=== PATIENT | male | born 1960 | race Caucasian/White ===

== ENCOUNTER 2023-04-16 08:39 | Emergency (ER) | payer MEDICAID, OTHER ==
[~2023-04-16] VITALS: Ht 175.3 cm; Wt 86.2 kg
[2023-04-16 08:47] VITALS: BP 140/90; PULSE 78; RESP 18; TEMP 97.8; O2SAT 98
[2023-04-16 10:59] LABS: HEMOGLOBIN. 15.2 g/dL (14.0-18.0); MEAN CORPUSCULAR HEMOGLOBIN 28.5 pg (28.0-32.0); MEAN CORPUSCULAR VOLUME 86.4 fL (80.0-94.0); MEAN PLATELET VOLUME 8.5 fl (7.4-10.4); PLATELET 156 x1000/uL (130-400); RED BLOOD CELL COUNT 5.33 mill/uL (4.7-6.1); RED CELL DISTRIBUTION WIDTH 14.5 % (11.6-14.6); WHITE BLOOD COUNT 21.2 x1000/uL (4.5-11.0)
[2023-04-16 11:02] LABS: DIFFERENTIAL COMMENT 1
[2023-04-16 11:09] LABS: CLARITY URINE TURBID (CLEAR); COLOR URINE RED (YELLOW); GLUCOSE URINE NEGATIVE (NEGATIVE); KETONES URINE NEGATIVE (NEGATIVE); LEUKOCYTE ESTERASE URINE 1+ (NEGATIVE); NITRITE URINE NEGATIVE (NEGATIVE); OCCULT BLOOD URINE 3+ (NEGATIVE); PH URINE 5.5 (4.5-8.0); PROTEIN URINE 2+ (NEGATIVE); SPECIFIC GRAVITY URINE 1.017 (1.005-1.030)
[2023-04-16 11:35] LABS: RBC URINE TNTC /hpf (0-2)
[2023-04-16 11:36] LABS: WBC URINE 0-2 /hpf (0-2)
[2023-04-16 11:37] LABS: BACTERIA URINE TRACE; SQUAMOUS EPITHELIAL CELL URINE FEW /lpf (RARE/1+)
[2023-04-16 12:00] LABS: ALANINE AMINOTRANSFERASE 26 IU/L (10-49); ALBUMIN 4.5 g/dL (3.2-4.8); ASPARTATE AMINOTRANSFERASE 35 IU/L (<34); BILIRUBIN TOTAL 0.9 mg/dL (0.1-1.0); CALCIUM 10.4 mg/dL (8.7-10.4); CHLORIDE 105 mEq/L (98-107); CREATININE 1.2 mg/dL (0.6-1.3); GLUCOSE 92 mg/dL (70-105); POTASSIUM 3.9 mEq/L (3.5-5.1); PROTEIN TOTAL 7.7 g/dL (6.0-8.3); SODIUM 140 mEq/L (136-145); UREA NITROGEN BLOOD 18 mg/dL (9-23)
[2023-04-16 12:13] LABS: CARBON DIOXIDE 24 mEq/L (21-32)
[2023-04-16 15:40] LABS: PLATELET ESTIMATE NORMAL
== END 2023-04-16 13:13 | disposition home or self-care (01) ==
LOC: ER 08:58
DX: R31.9 Hematuria, unspecified (principal); D72.829 Elevated white blood cell count, unspecified
CPT/HCPCS: 36415; 74176; 80053; 81003; 85025; 99284

== ENCOUNTER 2023-05-02 12:48 | Emergency (ER) | payer MEDICAID, OTHER ==
[~2023-05-02] VITALS: Ht 177.8 cm; Wt 70.0 kg
[~2023-05-02 12:48] MED LIST: AMLO10TA4 MT; FINA1TAB18 MT; LIP40 MT; SULF1TAB48 MT; TAMS-11 MT
[2023-05-02 12:50] VITALS: O2SAT 100
[2023-05-02 16:13] LABS: GLUCOSE URINE NEGATIVE (NEGATIVE); KETONES URINE NEGATIVE (NEGATIVE)
[2023-05-02 16:18] LABS: CLARITY URINE CLEAR (CLEAR); COLOR URINE YELLOW (YELLOW); PH URINE 5.5 (4.5-8.0); PROTEIN URINE 1+ (NEGATIVE); SPECIFIC GRAVITY URINE 1.018 (1.005-1.030)
[2023-05-02 16:19] LABS: LEUKOCYTE ESTERASE URINE 1+ (NEGATIVE); NITRITE URINE NEGATIVE (NEGATIVE); OCCULT BLOOD URINE 3+ (NEGATIVE)
[2023-05-02 16:26] LABS: BACTERIA URINE 2+; SQUAMOUS EPITHELIAL CELL URINE FEW /lpf (RARE/1+)
[2023-05-02 16:27] LABS: RBC URINE 15-25 /hpf (0-2)
[2023-05-02 19:20] VITALS: BP 122/62; PULSE 78; RESP 18; TEMP 98.7
== END 2023-05-02 20:04 | disposition home or self-care (01) ==
LOC: ER 13:15
DX: T83.031A Leakage of indwelling urethral catheter, initial encounter (principal); M19.90 Unspecified osteoarthritis, unspecified site; N40.0 Benign prostatic hyperplasia without lower urinary tract symptoms
CPT/HCPCS: 51702; 81003; 99283; 99284

== ENCOUNTER 2023-05-07 18:15 | Emergency (ER) | payer OTHER ==
[~2023-05-07] VITALS: Ht 185.4 cm; Wt 91.0 kg
[2023-05-07 18:22] VITALS: BP 97/44; PULSE 95; RESP 16; TEMP 97.5; O2SAT 99
[2023-05-07] MEDS ORDERED: NALO4SPR BOTHNSTRLS (19:03)
== END 2023-05-07 20:32 | disposition home or self-care (01) ==
LOC: ER 18:15
DX: F11.10 Opioid abuse, uncomplicated (principal); T40.415A Adverse effect of fentanyl or fentanyl analogs, initial encounter; X58.XXXA Exposure to other specified factors, initial encounter; F14.10 Cocaine abuse, uncomplicated
CPT/HCPCS: 99283

== ENCOUNTER 2023-05-30 08:03 | Inpatient (IN) | payer OTHER ==
[~2023-05-30] VITALS: Ht 182.9 cm; Wt 81.6 kg
[~2023-05-30 08:03] MED LIST changes: +NALO4SPR BOTHNSTRLS
[2023-05-30 08:48] LABS: ALANINE AMINOTRANSFERASE 17 IU/L (10-49); ALBUMIN 3.7 g/dL (3.2-4.8); ASPARTATE AMINOTRANSFERASE 42 IU/L (<34); BILIRUBIN TOTAL 0.5 mg/dL (0.1-1.0); CALCIUM 8.9 mg/dL (8.7-10.4); CARBON DIOXIDE 21 mEq/L (21-32); CHLORIDE 113 mEq/L (98-107); GLUCOSE 126 mg/dL (70-105); POTASSIUM 3.6 mEq/L (3.5-5.1); PROTEIN TOTAL 5.7 g/dL (6.0-8.3); SODIUM 146 mEq/L (136-145); UREA NITROGEN BLOOD 35 mg/dL (9-23)
[2023-05-30 08:54] LABS: CREATININE 2.1 mg/dL (0.6-1.3)
[2023-05-30 08:56] LABS: MEAN CORPUSCULAR HEMOGLOBIN 28.1 pg (28.0-32.0); MEAN CORPUSCULAR HGB CONC 33.8 g/dL (31.0-37.0); MEAN CORPUSCULAR VOLUME 83.1 fL (80.0-94.0); MEAN PLATELET VOLUME 7.5 fl (7.4-10.4); PLATELET 101 x1000/uL (130-400); RED BLOOD CELL COUNT 2.18 mill/uL (4.7-6.1); RED CELL DISTRIBUTION WIDTH 15.3 % (11.6-14.6); WHITE BLOOD COUNT 6.9 x1000/uL (4.5-11.0)
[2023-05-30 09:01] LABS: DIFFERENTIAL COMMENT 1
[2023-05-30 09:03] LABS: HEMATOCRIT. 18.1 % (42.0-52.0); HEMOGLOBIN. 6.1 g/dL (14.0-18.0)
[2023-05-30 09:07] LABS: INR 1.2; PROTHROMBIN TIME 12.5 sec (9.6-11.0)
[2023-05-30 09:33] LABS: NUCLEATED RED BLOOD CELLS 2 /100 WBC
[2023-05-30 09:35] LABS: ANISOCYTOSIS 1+; PLATELET ESTIMATE SLIGHTLY DECREASED
[2023-05-30 10:28] LABS: CLARITY URINE CLOUDY (CLEAR); COLOR URINE YELLOW (YELLOW); GLUCOSE URINE NEGATIVE (NEGATIVE); KETONES URINE NEGATIVE (NEGATIVE); LEUKOCYTE ESTERASE URINE 2+ (NEGATIVE); NITRITE URINE NEGATIVE (NEGATIVE); OCCULT BLOOD URINE 3+ (NEGATIVE); PH URINE 5.5 (4.5-8.0); PROTEIN URINE 1+ (NEGATIVE); SPECIFIC GRAVITY URINE 1.011 (1.005-1.030); UROBILINOGEN URINE 0.2 E.U./dL (0.2-1.0)
[2023-05-30 10:46] LABS: RBC URINE 15-25 /hpf (0-2); SQUAMOUS EPITHELIAL CELL URINE RARE /lpf (RARE/1+); WBC URINE 25-50 /hpf (0-2)
[2023-05-30 10:47] LABS: BACTERIA URINE TRACE; YEAST URINE NONE SEEN
[2023-05-30] MEDS ORDERED: CEFTRIAXONE 1GM PREMIX 50 ML IV ONE (13:45)
[2023-05-30 20:00] VITALS: BP 155/71; PULSE 97; RESP 18; TEMP 98.1
[2023-05-30] MEDS ORDERED: CLONIDINE 0.1MG TABLET PO PRN (23:00)
[2023-05-31] VITALS: BP 154/78; PULSE 102; RESP 18; TEMP 98.9
[2023-05-31 00:34] VITALS: BP 155/71; PULSE 97; RESP 18; TEMP 98.1
[2023-05-31 04:00] VITALS: BP 150/74; PULSE 99; RESP 18; TEMP 98.2
[2023-05-31 06:35] LABS: MEAN CORPUSCULAR HEMOGLOBIN 28.6 pg (28.0-32.0); MEAN CORPUSCULAR HGB CONC 33.8 g/dL (31.0-37.0); MEAN CORPUSCULAR VOLUME 84.6 fL (80.0-94.0); MEAN PLATELET VOLUME 7.4 fl (7.4-10.4); PLATELET 95 x1000/uL (130-400); RED BLOOD CELL COUNT 2.48 mill/uL (4.7-6.1); RED CELL DISTRIBUTION WIDTH 15.3 % (11.6-14.6); WHITE BLOOD COUNT 10.3 x1000/uL (4.5-11.0)
[2023-05-31 07:02] LABS: DIFFERENTIAL COMMENT 1; HEMATOCRIT. 20.9 % (42.0-52.0); HEMOGLOBIN. 7.1 g/dL (14.0-18.0)
[2023-05-31 07:14] LABS: CALCIUM 9.5 mg/dL (8.7-10.4); CARBON DIOXIDE 23 mEq/L (21-32); CHLORIDE 111 mEq/L (98-107); CREATININE 1.9 mg/dL (0.6-1.3); GLUCOSE 85 mg/dL (70-105); IRON 66 ug/dL (65-175); POTASSIUM 3.5 mEq/L (3.5-5.1); SODIUM 144 mEq/L (136-145); TOTAL IRON BINDING CAPACITY 261 ug/dl (250-425); UREA NITROGEN BLOOD 30 mg/dL (9-23)
[2023-05-31 08:00] VITALS: BP 139/73; PULSE 84; RESP 18; TEMP 94.5
[2023-05-31] MEDS: FINASTERIDE 5MG TABLET PO SCH (09:42)
[2023-05-31] MEDS: TAMSULOSIN HCL 0.4MG SR CAPSULE PO SCH (09:42)
[2023-05-31] MEDS ORDERED: FINASTERIDE 5MG TABLET PO SCH (10:45)
[2023-05-31] MEDS ORDERED: TAMSULOSIN HCL 0.4MG SR CAPSULE PO SCH (10:45)
[2023-05-31 11:52] LABS: FERRITIN 1646 ng/mL (22-322); FOLIC ACID (FOLATE) SERUM 15.61 ng/mL (>5.38); VITAMIN B12 SERUM 266 pg/mL (211-911)
[2023-05-31 11:58] LABS: CREATINE KINASE 54 IU/L (46-171)
[2023-05-31 12:00] VITALS: BP 135/77; PULSE 83; RESP 18; TEMP 95
[2023-05-31] MEDS: SODIUM CHLORIDE 0.45% 1,000 ML IV SCH (12:00)
[2023-05-31] MEDS: CEFTRIAXONE 1GM PREMIX 50 ML IV SCH (14:00)
[2023-05-31 16:00] VITALS: BP 136/72; PULSE 86; RESP 19; TEMP 96
[2023-05-31 16:15] LABS: *AMPHETAMINES SCREEN URINE PRESUMPTIVE POSITIVE (NEGATIVE); *BARBITURATES SCREEN URINE NEGATIVE (NEGATIVE); *BENZODIAZEPINES SCREEN URINE NEGATIVE (NEGATIVE); *COCAINE SCREEN URINE NEGATIVE (NEGATIVE); CANNABINOID URINE SCREEN PRESUMPTIVE POSITIVE (NEGATIVE); ECSTASY MDMA SCREEN URINE NEGATIVE (NEGATIVE); METHADONE URINE SCREEN Neg (NEGATIVE); OPIATES URINE SCREEN NEGATIVE (NEGATIVE); PHENCYCLIDINE URINE SCREEN NEGATIVE (NEGATIVE)
[2023-05-31] MEDS: ACETAMINOPHEN 325MG TABLET PO PRN (16:19)
[2023-05-31 17:21] LABS: ANISOCYTOSIS 1+; PLATELET ESTIMATE DECREASED
[2023-06-01] VITALS: BP 166/83; PULSE 79; RESP 18
[2023-06-01] MEDS: SODIUM CHLORIDE 0.45% 1,000 ML IV SCH ×2 (02:12→14:11)
[2023-06-01 04:00] VITALS: BP 162/76; PULSE 84; RESP 18; TEMP 100.2
[2023-06-01 08:00] VITALS: BP 131/72; PULSE 89; RESP 22; TEMP 97.4
[2023-06-01] MEDS: TAMSULOSIN HCL 0.4MG SR CAPSULE PO SCH (08:26)
[2023-06-01] MEDS: FINASTERIDE 5MG TABLET PO SCH (08:26)
[2023-06-01 12:00] VITALS: BP 138/81; PULSE 68; RESP 21; TEMP 98.2
[2023-06-01] MEDS: CEFTRIAXONE 1GM PREMIX 50 ML IV SCH (14:11)
[2023-06-01] MEDS: ACETAMINOPHEN 325MG TABLET PO PRN (17:49)
[2023-06-01 20:00] VITALS: BP 126/79; PULSE 74; RESP 19; TEMP 98.3
[2023-06-02] VITALS: BP 119/67; PULSE 69; RESP 18; TEMP 97.4
[2023-06-02 04:00] VITALS: BP 145/95; PULSE 78; RESP 17; TEMP 97.1
[2023-06-02] MEDS: SODIUM CHLORIDE 0.45% 1,000 ML IV SCH ×2 (04:28→16:36)
[2023-06-02] MEDS: ACETAMINOPHEN 325MG TABLET PO PRN ×2 (07:01→23:01)
[2023-06-02 07:28] LABS: HEMATOCRIT. 21.9 % (42.0-52.0); HEMOGLOBIN. 7.6 g/dL (14.0-18.0); MEAN CORPUSCULAR HEMOGLOBIN 28.6 pg (28.0-32.0); MEAN CORPUSCULAR HGB CONC 34.8 g/dL (31.0-37.0); MEAN CORPUSCULAR VOLUME 82.1 fL (80.0-94.0); MEAN PLATELET VOLUME 7.2 fl (7.4-10.4); PLATELET 93 x1000/uL (130-400); RED BLOOD CELL COUNT 2.67 mill/uL (4.7-6.1); RED CELL DISTRIBUTION WIDTH 15.6 % (11.6-14.6); WHITE BLOOD COUNT 10.7 x1000/uL (4.5-11.0)
[2023-06-02 07:55] LABS: CALCIUM 9.8 mg/dL (8.7-10.4); CREATININE 1.7 mg/dL (0.6-1.3); POTASSIUM 3.7 mEq/L (3.5-5.1)
[2023-06-02 08:00] VITALS: BP 139/79; PULSE 67; RESP 19; TEMP 97.9
[2023-06-02 08:02] LABS: DIFFERENTIAL COMMENT 1
[2023-06-02] MEDS: FINASTERIDE 5MG TABLET PO SCH (08:21)
[2023-06-02] MEDS: TAMSULOSIN HCL 0.4MG SR CAPSULE PO SCH (08:21)
[2023-06-02 12:00] VITALS: BP 123/78; PULSE 80; RESP 18; TEMP 97.9
[2023-06-02] MEDS: CEFTRIAXONE 1GM PREMIX 50 ML IV SCH (13:01)
[2023-06-02 16:00] VITALS: BP 146/86; PULSE 75; RESP 19; TEMP 98.2
[2023-06-02 16:53] LABS: PLATELET ESTIMATE DECREASED
[2023-06-02 20:00] VITALS: BP 140/82; PULSE 82; RESP 18; TEMP 98.8
[2023-06-03] VITALS: BP 135/75; PULSE 76; RESP 18; TEMP 97.1
[2023-06-03 04:00] VITALS: BP 140/83; PULSE 71; RESP 18; TEMP 97.7
[2023-06-03] MEDS: SODIUM CHLORIDE 0.45% 1,000 ML IV SCH (06:24)
[2023-06-03 08:00] VITALS: BP 145/77; PULSE 71; RESP 19; TEMP 96.7
[2023-06-03] MEDS: TAMSULOSIN HCL 0.4MG SR CAPSULE PO SCH (09:38)
[2023-06-03] MEDS: FINASTERIDE 5MG TABLET PO SCH (09:38)
[2023-06-03] MEDS: ACETAMINOPHEN 325MG TABLET PO PRN (12:44)
[2023-06-03] MEDS ORDERED: SULF1TAB48 MT (13:26)
[2023-06-03 14:00] VITALS: BP 142/93; PULSE 72; TEMP 98.6; O2SAT 96
== END 2023-06-03 14:30 | disposition home or self-care (01) | DRG 663 ==
LOC: ER 08:03 → 5WST 17:27 → EDBEDREQSVC 17:31 → EDBEDREQ 17:31 → 6EST 19:56
PROVIDERS: ADMIT Internal Medicine; ATTEND Internal Medicine
PROC: 30233N1 Transfusion of Nonautologous Red Blood Cells into Peripheral Vein, Percutaneous Approach (ICD-10-PCS; principal; 2023-05-30)
DX: D64.9 Anemia, unspecified (principal); N17.9 Acute kidney failure, unspecified; E87.0 Hyperosmolality and hypernatremia; N13.6 Pyonephrosis; N13.8 Other obstructive and reflux uropathy; N40.1 Benign prostatic hyperplasia with lower urinary tract symptoms; N20.0 Calculus of kidney; J43.9 Emphysema, unspecified; B19.20 Unspecified viral hepatitis C without hepatic coma; N18.9 Chronic kidney disease, unspecified; F12.90 Cannabis use, unspecified, uncomplicated; Z87.442 Personal history of urinary calculi; Z79.899 Other long term (current) drug therapy
CPT/HCPCS: 36415; 76770; 80048; 80053; 80305; 81003; 82550; 82607; 82728; 82746; 83540; 83550; 84145; 85025; 85044; 86850; 86900; 86920; 87186; 99291; J0696; P9016